=== PATIENT | female | born 2000 | race Caucasian/White ===

== ENCOUNTER 2023-06-19 11:11 | Emergency (ER) | payer OTHER ==
[2023-06-19 11:20] VITALS: BP 106/75; RESP 18; TEMP 98.5; BMI 20.7
[2023-06-19] MEDS ORDERED: SODIUM CHLORIDE 0.9% 500 ML INFUS.BAG IV ONE (12:13)
[2023-06-19] MEDS ORDERED: ONDANSETRON 4 MG/2 ML VIAL IVPUSH ONE (12:13)
[2023-06-19] MEDS ORDERED: FAMOTIDINE 20 MG/50 ML IVPB 20 MG/50 ML MG IVPB ONE ×2 (12:13→12:17)
[2023-06-19] MEDS ORDERED: ONDANSETRON 4 MG/2 ML VIAL ONE (12:17)
[2023-06-19 13:01] LABS: BASO % 0.3 % (0-2.0); EOS % 0.4 % (0-4.5); HEMATOCRIT 41.1 % (32.4-45.2); HEMOGLOBIN 14.7 GM/dL (10.7-15.3); LYMPH % 5.4 % (8-40); MCH 30.6 pg (25.7-33.7); MCHC 35.7 g/dl (32.0-36.0); MEAN CELL VOLUME 85.5 fl (80-96); MEAN PLT VOLUME 8.7 fl (7.5-11.1); MONO % 5.7 % (3.8-10.2); NEUT % 88.2 % (42.8-82.8); PLATELET COUNT 291 10^3/uL (134-434); RBC 4.81 M/mm3 (3.60-5.2); RDW 12.5 % (11.6-15.6); WHITE BLOOD COUNT 9.1 K/mm3 (4.0-10.0)
[2023-06-19 13:11] LABS: POTASSIUM 3.8 mmol/L (3.5-5.1)
[2023-06-19 13:13] LABS: CALCIUM 8.6 mg/dL (8.5-10.1)
[2023-06-19 13:14] LABS: ALBUMIN 3.8 g/dl (3.4-5.0); BLOOD UREA NITROGEN 12.6 mg/dL (7-18)
[2023-06-19 13:17] LABS: CREATININE 0.6 mg/dL (0.55-1.3)
[2023-06-19 13:18] LABS: BILIRUBIN,TOTAL 1.2 mg/dL (0.2-1)
[2023-06-19 13:19] LABS: TOT PROT 7.4 g/dl (6.4-8.2)
[2023-06-19] MEDS ORDERED: LACTATED RINGERS SOLUTION 1,000 ML/1,000 ML INFUS.BAG IV SCH (13:45)
[2023-06-19 14:17] VITALS: PULSE 95
== END 2023-06-19 14:22 | disposition home or self-care (01) ==
LOC: JER 11:11
PROC: 3E033GC Introduction of Other Therapeutic Substance into Peripheral Vein, Percutaneous Approach (ICD-10-PCS; principal; 2023-06-19)
PROC: 3E033GC Introduction of Other Therapeutic Substance into Peripheral Vein, Percutaneous Approach (ICD-10-PCS; 2023-06-19)
DX: R11.2 Nausea with vomiting, unspecified (principal); R19.7 Diarrhea, unspecified; Z20.822 Contact with and (suspected) exposure to COVID-19
CPT/HCPCS: 0241U-QW; 36415; 80053; 83690; 83735; 84703; 85025; 99284-25